=== PATIENT | female | born 1970 | race African-American/Black ===

== ENCOUNTER 2022-07-11 16:57 | Emergency (ER) | payer OTHER ==
[~2022-07-11] VITALS: Ht 167.6 cm; Wt 68.0 kg
[2022-07-11 17:31] VITALS: BP 137/80
--- NOTE | 2022-07-11 17:47 | NUR ---
Patient discharged to home in stable condition. Written and verbal after care instructions given. Patient verbalizes understanding of instruction.
== END 2022-07-11 17:46 | disposition home or self-care (01) ==
LOC: ER 16:57
DX: S09.90XA Unspecified injury of head, initial encounter (principal); Z88.2 Allergy status to sulfonamides; Y08.89XA Assault by other specified means, initial encounter; Y93.89 Activity, other specified; Y92.89 Other specified places as the place of occurrence of the external cause; Y99.8 Other external cause status